=== PATIENT | male | born 1965 | race Caucasian/White ===

== ENCOUNTER → 2016-08-08 | Outpatient (CLI) | payer OTHER ==
[~2016-08-08] MED LIST: ALPRAZOLAM0.25 MG PO; AUGMENTIN875 MG PO; COUMADIN2.5 MG PO; DEPAKOTE500 MG PO; DILANTIN100 MG PO; HYDROMORPHONE HC2 MG PO; K-DUR20 MEQ PO; LAMICTAL100 MG PO; LAMOTRIGINE100 MG PO; METHADONE10 MG PO; NAPROSYN500 MG PO; OMEPRAZOLE40 MG PO; OXYCONTIN15 MG PO; PHENERGAN25 MG PR; PRILOSEC40 MG PO; SEROQUEL100 MG PO; SEROQUEL300 MG PO; SEROQUEL400 MG PO; SIMVASTATIN20 MG PO; TRAMADOL HCL50 MG PO; XANAX0.5 MG PO
== END | disposition home or self-care (01) ==
LOC: CDC 09:47
DX: Z13.6 Encounter for screening for cardiovascular disorders (principal); Z79.891 Long term (current) use of opiate analgesic
CPT/HCPCS: 93000

== ENCOUNTER 2017-10-29 11:20 | Emergency (ER) | payer OTHER ==
[~2017-10-29] VITALS: Ht 180.3 cm; Wt 94.5 kg
[2017-10-29] MEDS ORDERED: MOTRIN800 MG PO (14:33)
[2017-10-29] MEDS ORDERED: KEFLEX500 MG PO (15:19)
[2017-10-29 15:39] VITALS: BP 124/83
== END 2017-10-29 15:41 | disposition home or self-care (01) ==
LOC: EME 11:20 → RME 11:20
DX: I80.8 Phlebitis and thrombophlebitis of other sites (principal); Z86.718 Personal history of other venous thrombosis and embolism; Z86.711 Personal history of pulmonary embolism; K21.9 Gastro-esophageal reflux disease without esophagitis; R56.9 Unspecified convulsions; F31.9 Bipolar disorder, unspecified; F32.9 Major depressive disorder, single episode, unspecified
CPT/HCPCS: 93971; 99281; 99284